=== PATIENT | female | born 1985 | race Caucasian/White ===

== ENCOUNTER 2018-06-06 12:04 | Inpatient (IN) ==
[2018-06-06] MEDS ORDERED: RINGER'S SOLUTION,LACTATED 1,000 ML IV PRN ×2 (12:12→14:27)
[2018-06-06 12:32] LABS: Hematocrit 37.6 % (37.0-47.0); Hemoglobin 12.5 gm/dL (12.5-16.0); Mean Cell Volume 90.4 fl (78-100); Mean Corpuscular Hgb Conc 33.2 g/dl (32-36); Neutrophil # 8.2 K/mm3 (1.3-6.0); Neutrophil % 71.9 % (42-75.0); Platelet Count 229 K/mm3 (150-450); Red Blood Count 4.16 M/mm3 (4.2-5.4); Red Cell Distribution Width 13.5 % (11.5-14.0); White Blood Count 11.4 K/mm3 (4.0-10.5)
[2018-06-06 12:41] LABS: Albumin * 2.9 gm/dl (3.4-5.0); BUN/Creatinine Ratio 10.5 (9.0-21.6); Bilirubin, Total 0.4 mg/dL (0.0-1.1); Ca. Corrected For Albumin 9.2 mg/dL (8.4-10.2); Calcium * 8.6 mg/dL (7.9-10.9); Carbon Dioxide 21.9 mmol/L (24-32.6); Potassium 3.9 mmol/L (3.4-4.6); Total Protein 6.9 gm/dL (6.2-8.2)
[2018-06-06 13:22] LABS: Random Urine Total Protein 7.2 mg/dL (0-12)
[2018-06-06] MEDS ORDERED: ceFAZolin SODIUM/DEXTROSE,ISO 2 GM/50 ML BAG IV ONE (14:27)
[2018-06-06] MEDS ORDERED: OXYTOCIN 20 UNITS in RINGER'S SOLUTION,LACTATED 1,000 ML IV ONE ×2 (14:27→17:00)
--- NOTE | 2018-06-06 14:37 | HP ---
Chief Complaint - Chief Complaint Date of Service: 06/06/18 Time of Service: 14:17 Chief Complaint: elevated blood pressures, contractions History of Present Illness: 32 yo at 37 5/7 wks here for repeat c/s due to preeclampsia and early labor. Patient presented to office for routine OB visit where she was noted to have elevated blood pressures. During evaluation she was noted to also have contractions q 2-3 min of increasing intensity. Blood pressures have been running 130s-150s/80-90s, Prot/Cr ratio was 742. She denies HWANG, visual changes , or epigastric pain. This complicated by hypothyroid, prior c/s, preeclampsia. Rh positve (AB+) Rubella immune GBS negative Medical History (Last Reviewed 06/06/18 @ 14:27 by Simon Alicia DO) Anxiety Onset Date: Unknown Gestational hypertension Onset Date: Unknown Hypothyroid Onset Date: Unknown Migraine Onset Date: Unknown Breech presentation Onset Date: 01/20/13 Sinusitis Onset Date: ~10/06/12 Pelvic pain Onset Date: 09/10/14 Surgical History: Surgical History (Last Reviewed 06/06/18 @ 14:27 by Simon Alicia DO) Previous section complicating Onset Date: ~11/19/17 H/O dilation and curettage Onset Date: ~03/03/12 History of tonsillectomy and adenoidectomy Myringotomy tube status Onset Date: Unknown Previous section Onset Date: ~01/20/13 [place] teeth extracted Onset Date: ~2005 Family History: Family History (Last Reviewed 06/06/18 @ 14:27 by Simon Alicia DO) Father Gout Mother Anxiety Hyperlipemia Hypertension Grandfather CVA (cerebral vascular accident) Grandmother Breast cancer Grandmother Diabetes Social History: Preferred Language Mongolian Do you have any muslim or No cultural preference? Abuse History No History of abuse Psych History No pertinent hx Review Of Systems (GEN) - Review of Systems Generalized/Overall Review: Present: No Symptoms Reported EENTM: Present: No Symptoms Reported Respiratory: Present: No Symptoms Reported Cardiac: Present: No Symptoms Reported Abdominal: Present: Other - contractions Genitourinary: Present: No Symptoms Reported Musculoskeletal: Present: No Symptoms Reported Neurological: Present: No Symptoms Reported Skin: Present: No Symptoms Reported Endocrine: Present: No Symptoms Reported Immunizations: IMMUNIZATION HX Immunizations Up to Date No History of Influenza Vaccine No Hx Pneumococcal Vaccination No Allergies/Adverse Reactions: Allergies Allergy/AdvReac Type Severity Reaction Status Date / Time amoxicillin [Amoxicillin] Allergy Unknown RASH Verified 05/30/18 15:39 Home Medications: HOME MEDICATIONS Prenat Vit Comb.10/Iron/FA/Dha [Vitafol-Ob+Dha Combo Pack] 1 ea PO DAILY [Last Taken 06/05/18] cholecalciferol (vitamin D3) 1,000 unit capsule 1,000 unit PO DAILY 05/04/18 [ Last Taken 06/05/18] vitamin L60-dkmxp acid 2.5 mg-0.8 mg oral sublingual tablet 1 tab PO DAILY 05/04 [Last Taken 06/05/18] thyroid (pork) 30 mg tablet 30 mg PO DAILY #30 tab 05/30/18 [Last Taken 06/06/18 ] Exam - Exam Vital Signs: Vital Signs - Last Taken Temp 36.8 C 06/06/18 13:20 Pulse 75 06/06/18 13:20 Resp 18 06/06/18 13:20 BP 147/82 H 06/06/18 13:20 Pulse Ox 99 06/06/18 13:20 Constitutional: Present: Alert, Oriented x3, Cooperative, Mild distress ENT Exam: Present: hearing grossly normal Breasts: Present: Exam deferred Respiratory: Present: lungs clear, no respiratory distress Cardiovascular/Chest: Present: normal peripheral pulses, regular rate, rhythm, no edema Abdomen: Present: soft, nontender. Absent: rebound tenderness /Rectal: Present: Exam deferred Extremity: Present: non-tender, no pedal edema, no calf tenderness Skin Exam: Present: normal color, warm/dry, no cyanosis Lymphatic: Present: no adenopathy Neurologic: Present: normal mood/affect, oriented x 3 Appearance: Present: appropriate appearance, appropriate insight Eye contact: Present: cooperative, good eye contact, normal speech Thoughts: Present: normal thought pattern Diagnostic Studies: Abnormal Lab Results 06/06/18 06/06/18 06/06/18 Range/Units 12:27 12:27 Unknown WBC 11.4 H (4.0-10.5) K/mm3 RBC 4.16 L (4.2-5.4) M/mm3 Immature Gran % (Auto) 0.70 H (0.001-0.429) % Immature Gran # (Auto) 0.08 H (0.000-0.0310) K/mm3 Lymphocytes % 18.3 L (20-51) % Neutrophils # 8.2 H (1.3-6.0) K/mm3 Carbon Dioxide 21.9 L (24-32.6) mmol/L Anion Gap 17.0 H (6.8-13.8) mmol/L Est GFR (Non-Af Amer) 132 H (60-130) mL/min ALT 17 L (19-67) U/L Albumin 2.9 L (3.4-5.0) gm/dl Ur Random Creatinine 9.7 L (60-200) mg/dL U [place] Prot/Creat Ratio 742 H (0-199) mg/gm Laboratory Results WBC 11.4 K/mm3 (4.0-10.5) H 06/06/18 12:27 RBC 4.16 M/mm3 (4.2-5.4) L 06/06/18 12:27 Hgb 12.5 gm/dL (12.5-16.0) 06/06/18 12:27 Hct 37.6 % (37.0-47.0) 06/06/18 12:27 MCV 90.4 fl (78-100) 06/06/18 12:27 MCH 30.0 pg (27-31) 06/06/18 12:27 MCHC 33.2 g/dl (32-36) 06/06/18 12:27 RDW 13.5 % (11.5-14.0) 06/06/18 12:27 Plt Count 229 K/mm3 (150-450) 06/06/18 12:27 MPV 10.0 fl (8-12.5) 06/06/18 12:27 Immature Gran % (Auto) 0.70 % (0.001-0.429) H 06/06/18 12:27 Immature Gran # (Auto) 0.08 K/mm3 (0.000-0.0310) H 06/06/18 12:27 Neutrophils % 71.9 % (42-75.0) 06/06/18 12:27 Lymphocytes % 18.3 % (20-51) L 06/06/18 12:27 Monocytes % 7.9 % (0.0-9) 06/06/18 12:27 Eosinophils % 0.9 % (0.0-3.0) 06/06/18 12:27 Basophils % 0.3 % (0.0-1.0) 06/06/18 12:27 Nucleated RBC % 0.0 k/mm3 (0-1) 06/06/18 12:27 Neutrophils # 8.2 K/mm3 (1.3-6.0) H 06/06/18 12:27 Lymphocytes # 2.08 k/mm3 (1.5-3.5) 06/06/18 12:27 Monocytes # 0.9 k/mm3 (0.0-1.0) 06/06/18 12:27 Eosinophils # 0.1 k/mm3 (0.0-0.7) 06/06/18 12:27 Absolute Basophils 0.0 k/mm3 (0.0-0.1) 06/06/18 12:27 Sodium 138 mmol/L (132-142) 06/06/18 12:27 Plasma Sodium 138 mmol/L (130-142) 06/06/18 12:27 Potassium 3.9 mmol/L (3.4-4.6) 06/06/18 12:27 Chloride 103 mmol/L (97-106) 06/06/18 12:27 Carbon Dioxide 21.9 mmol/L (24-32.6) L 06/06/18 12:27 Anion Gap 17.0 mmol/L (6.8-13.8) H 06/06/18 12:27 BUN 6 mg/dL (3-23) 06/06/18 12:27 Creatinine 0.57 mg/dL (0.4-1.4) 06/06/18 12:27 Est GFR (Non-Af Amer) 132 mL/min (60-130) H 06/06/18 12:27 BUN/Creatinine Ratio 10.5 (9.0-21.6) 06/06/18 12: Random Glucose 74 mg/dL (70-110) 06/06/18 12:27 Calcium 8.6 mg/dL (7.9-10.9) 06/06/18 12:27 Calcium Adj for Albumin 9.2 mg/dL (8.4-10.2) 06/06/18 12:27 Total Bilirubin 0.4 mg/dL (0.0-1.1) 06/06/18 12:27 AST 16 U/L (0-48) 06/06/18 12:27 ALT 17 U/L (19-67) L 06/06/18 12:27 Alkaline Phosphatase 126 U/L (50-170) 06/06/18 12:27 Total Protein 6.9 gm/dL (6.2-8.2) 06/06/18 12:27 Albumin 2.9 gm/dl (3.4-5.0) L 06/06/18 12:27 Ur Random Creatinine 9.7 mg/dL (60-200) L 06/06/18 Unknown U Random Total Protein 7.2 mg/dL (0-12) 06/06/18 Unknown U [place] Prot/Creat Ratio 742 mg/gm (0-199) H 06/06/18 Unknown Assessment/Plan - Assessment/Plan (1) Preeclampsia Problem: Acute Qualifiers: Trimester: third trimester Qualified Code(s): O14.93 - Unspecified pre- eclampsia, third trimester (2) Previous delivery affecting Assessment: R/b/a to repeat c/s discussed with patient and spouse. All questions answered. Will proceed with repeat c/s due to preeclampsia and labor. Problem: Acute (3) Hypothyroid Problem: Acute Qualifiers: Hypothyroidism type: unspecified Qualified Code(s): E03.9 - Hypothyroidism , unspecified
[2018-06-06] MEDS ORDERED: ONDANSETRON HCL/PF 2 MG/ML VIAL IV PRN (17:00)
[2018-06-06] MEDS ORDERED: SIMETHICONE 80 MG TAB.CHEW PO PRN (17:00)
[2018-06-06] MEDS ORDERED: oxyCODONE HCL/ACETAMINOPHEN 1 TAB TABLET PO PRN ×2 (17:00)
[2018-06-06] MEDS ORDERED: SENNOSIDES 8.6 MG TABLET PO PRN (17:00)
[2018-06-06] MEDS ORDERED: BISACODYL 10 MG SUPP.RECT RC PRN (17:00)
--- NOTE | 2018-06-06 17:05 | OR ---
Operative Report - Dictated Report Narrative: Indication: 32-year-old 3 para 1 at 37-5/7 weeks presents for repeat section due to preeclampsia and early labor. status: Planned Pre Operative Diagnosis: 37-5/7 week intrauterine , prior section, preeclampsia, early labor. Post Operative Diagnosis: Same. Procedure: Repeat low transverse section. Surgeon: Chapito Alicia DO Parts Finisher: OR Staff Anesthesia: Spinal, TAP block Estimated Blood Loss: 400 mL Urine Output: 150 mL clear urine Fluids Replacement: 1200 mL of crystalloid Drains: Gilbert to gravity Surgical Complications: None Specimens: Placenta to freezer Findings: Male born in cephalic presentation at 1605 on 06/06/2016 with Apgars 8 and 9, weighing 2763 g with tight nuchal cord 1 and foot cord 1. Normal uterus, tubes, ovaries Technique: The patient was taken to the operating room and placed in dorsal supine position with a left lateral tilt. After adequate spinal anesthesia, gilbert catheter inserted, SCDs placed, and 2 g of Ancef given preoperatively, the abdominal cavity was entered using sharp and blunt dissection. Two rolled laps were placed in the pericolic gutters on either side of the uterus. A transverse incision was made in the lower uterine segment and extended laterally and upwardly with digital traction. Clear fluid was noted upon amniotomy. The was delivered easily. The cord was clamped and cut and was handed off to awaiting dna analyst. The placenta was allowed to deliver spontaneously. The uterus was cleared of clot and debris. Uterine incision was closed with 0 Vicryl using a running stitch. A second imbricating layer was placed. Excellent hemostasis was noted. The rolled laps were removed from the abdominal cavitiy. The peritoneum was closed with a running 3- 0 Monocryl. The same suture was used to approximate the rectus and pyramidalis muscles. The fascia was closed with a running 0 Vicryl. The subcutaneous layer was closed with a running 3-0 Monocryl. The same suture was used to approximate the subdermal layer. The skin was closed with a running 4-0 Monocryl and Dermabond. Sponge, lap, needle, and instrument count were correct x 2. Disposition: To post anesthesia care unit in good condition History for MU Definition: * The number of deliveries resulting in a live the patient experienced prior to current hospitalization * The previous delivery of live twins or any live multiple gestation is considered one live event. *If primagravida or nulliparous is documented select zero for the number of previous live births. Live Events: 1
--- NOTE | 2018-06-06 17:59 | ANES ---
Anesthesia Pre Procedure Eval Vitals/Labs: Last Vital Signs Temp 36.3 C 06/06/18 17:10 Pulse 115 H 06/06/18 17:26 Resp 18 06/06/18 17:26 BP 137/69 06/06/18 17:26 Pulse Ox 100 06/06/18 17:26 HOME MEDICATIONS Prenat Vit Comb.10/Iron/FA/Dha [Vitafol-Ob+Dha Combo Pack] 1 ea PO DAILY [Last Taken 06/05/18] cholecalciferol (vitamin D3) 1,000 unit capsule 1,000 unit PO DAILY 05/04/18 [ Last Taken 06/05/18] vitamin D04-hofld acid 2.5 mg-0.8 mg oral sublingual tablet 1 tab PO DAILY 05/04 [Last Taken 06/05/18] thyroid (pork) 30 mg tablet 30 mg PO DAILY #30 tab 05/30/18 [Last Taken 06/06/18 ] Allergies/Adverse Reactions: Allergies Allergy/AdvReac Type Severity Reaction Status Date / Time amoxicillin [Amoxicillin] Allergy Unknown RASH Verified 05/30/18 15:39 - Planned Procedure Planned Procedure: CONTRACTIONS ELEV BPS Medication List Reviewed:: Yes Allergies Verified: Yes Medical History (Last Reviewed 06/06/18 @ 17:58 by Liu Conley CRNA) Anxiety Onset Date: Unknown Gestational hypertension Onset Date: Unknown Pre-eclampsia affecting childbirth Onset Date: 06/06/18 Hypothyroid Onset Date: Unknown Migraine Onset Date: Unknown Breech presentation Onset Date: 01/20/13 Sinusitis Onset Date: ~10/06/12 Pelvic pain Onset Date: 09/10/14 Surgical History (Last Reviewed 06/06/18 @ 17:58 by Liu Conley CRNA) Previous section complicating Onset Date: ~11/19/17 H/O dilation and curettage Onset Date: ~03/03/12 History of tonsillectomy and adenoidectomy Myringotomy tube status Onset Date: Unknown Previous section Onset Date: ~01/20/13 [place] teeth extracted Onset Date: ~2005 Family History (Last Reviewed 06/06/18 @ 17:58 by Liu Conley CRNA) Father Gout Mother Anxiety Hyperlipemia Hypertension Grandfather CVA (cerebral vascular accident) Grandmother Breast cancer Grandmother Diabetes - Family Anesthesia History Family History:: no untoward family reactions to anesthesia - Airway/Neck/Teeth Within Normal Limits:: Yes Teeth Condition: Intact Denture Type: None Neck Exam: non-tender, full range of motion, normal alignment, normal inspection Mallampatti Score: 2 Thyromental (T-M) distance: > 6 cm Mandibulo Hyoid distance: > 3 cm - Respiratory Respiratory: lungs clear, normal breath sounds - Cardiovascular Patient History - Cardiac/Respiratory: No pertinent hx Tolerates Activity: Good Heart Sounds: S1 & S2, Regular - Anesthesia Assessment and Plan ASA Class: II, E Anesthesia Type Plan: Epidural - Bilat Tap block for postop analgesia
--- NOTE | 2018-06-06 18:02 | ANES ---
Anesthesia Procedure Note Procedure Note: ANESTHESIA PROCEDURE NOTE Date of procedure: 06/06/2018. Time of procedure:[]. 1710 Performed by: Maik Conley CRNA [place] Manager: [] Yael White RN . Preprocedure diagnosis: []. Previous . Desire for postoperative analgesia. Post procedure diagnosis: Same. Procedure:[] Ultrasound-guided bilateral tap block. Indications: []. Postoperative analgesia. Findings: [] Patient was placed in a supine position in the PACU. Right abdominal wall was prepped with ChloraPrep. Ultrasound was utilized to identify the fascial layer between the internal oblique and trans-abdominus muscles. A 20-gauge 4 inch Stimuplex regional block needle was advanced under ultrasound guidance until tip of needle was positioned just distal to the fascial layer. A total of 20 mL of 0.25% Marcaine with epinephrine 1 200,000 was injected with adequate spread of local anesthetic noted. Regional block needle was removed intact. Procedure was repeated on patient's left side. EBL: Minimal. Fluids: N/A. Specimen: N/A. Post procedure condition: The patient tolerated the procedure well. No complications were noted. Thank you for this consultation Maik Conley CRNA
--- NOTE | 2018-06-06 18:02 | ANES ---
Post Anesthesia Discharge - Transfer of Care Transfer of Care handoff given to nurse: Yes - Discharge from PACU Discharge from PACU when meets criteria: Yes
--- NOTE | 2018-06-06 18:03 | ANES ---
Post Anesthesia Assessment - Vital Signs Vitals: Last Vital Signs Temp 36.3 C 06/06/18 17:10 Pulse 115 H 06/06/18 17:26 Resp 18 06/06/18 17:26 BP 137/69 06/06/18 17:26 Pulse Ox 100 06/06/18 17:26 Airway Patency: Normal - Mental Status Level Of Consciousness: Awake - Pain Level Pain Score: 4 - N/V Assessment Nausea/Vomiting Presence: None Dehydration:: No
[2018-06-06] MEDS: DOCUSATE SODIUM 100 MG CAPSULE PO SCH (22:31)
[2018-06-06] MEDS: IBUPROFEN 800 MG TABLET PO PRN (22:31)
[2018-06-06] MEDS: ENOXAPARIN SODIUM 40 MG/0.4 ML SYRG SC SCH (23:32)
[2018-06-07] MEDS: THYROID,PORK 60 MG TABLET PO SCH (07:42)
[2018-06-07] MEDS: IBUPROFEN 800 MG TABLET PO PRN ×3 (07:58→20:27)
[2018-06-07] MEDS: DOCUSATE SODIUM 100 MG CAPSULE PO SCH ×2 (07:59→20:27)
[2018-06-07] MEDS: PRENATAL VITS96/IRON FUM/FOLIC 1 TAB TABLET PO SCH (08:29)
[2018-06-07] MEDS: CHOLECALCIFEROL 1,000 UNIT CAPSULE PO SCH (08:29)
--- NOTE | 2018-06-07 11:12 | PN ---
Subjective - Date and Time Seen Date: 06/07/18 Time: 11:10 Objective - Vitals Vitals: Last Vital Signs Temp 37.1 C 06/07/18 08:03 Pulse 84 06/07/18 08:03 Resp 18 06/07/18 08:03 BP 135/79 06/07/18 08:03 Pulse Ox 98 06/07/18 08:03 Patient denies complaints. Denies headache, visual changes, epigastric pain, or edema. Tolerating regular diet. Ambulating without difficulty. Pain well controlled. Lochia wnl. Breast-feeding/pumping Abdomen - soft, appropriately tender Incision - clean, dry, intact Uterus - firm, at umbilicus -1 No calf tenderness Impression: Post op day #1 s/p repeat section. Preeclampsia- resolved. Hypothyroidism-stable Plan: Continue routine post-operative/ care. Since patient is recovering very well and baby has been transferred to [facility] for RDS, will plan on discharging patient tomorrow morning if she continues to remain stable. - Abnormal Lab Findings Abnormal Lab Findings: Abnormal Lab Results 06/06/18 06/06/18 06/06/18 Range/Units 12:27 12:27 Unknown WBC 11.4 H (4.0-10.5) K/mm3 RBC 4.16 L (4.2-5.4) M/mm3 Immature Gran % (Auto) 0.70 H (0.001-0.429) % Immature Gran # (Auto) 0.08 H (0.000-0.0310) K/mm3 Lymphocytes % 18.3 L (20-51) % Neutrophils # 8.2 H (1.3-6.0) K/mm3 Carbon Dioxide 21.9 L (24-32.6) mmol/L Anion Gap 17.0 H (6.8-13.8) mmol/L Est GFR (Non-Af Amer) 132 H (60-130) mL/min ALT 17 L (19-67) U/L Albumin 2.9 L (3.4-5.0) gm/dl Ur Random Creatinine 9.7 L (60-200) mg/dL U [place] Prot/Creat Ratio 742 H (0-199) mg/gm Cauti Physician Documentation - Urinary Catheter Management Urethral ([place]) Date of Insertion: 06/06/18 Time of Insertion: 15:45 Assessment/Plan - Problems/Diagnosis (1) Preeclampsia Problem: Acute Qualifiers: Trimester: third trimester Qualified Code(s): O14.93 - Unspecified pre- eclampsia, third trimester (2) Previous delivery affecting Problem: Acute (3) Hypothyroid Problem: Acute Qualifiers: Hypothyroidism type: unspecified Qualified Code(s): E03.9 - Hypothyroidism , unspecified
[2018-06-08] MEDS: ENOXAPARIN SODIUM 40 MG/0.4 ML SYRG SC SCH (02:07)
[2018-06-08 07:38] VITALS: BP 135/86
[2018-06-08] MEDS: THYROID,PORK 60 MG TABLET PO SCH (07:44)
[2018-06-08] MEDS: CHOLECALCIFEROL 1,000 UNIT CAPSULE PO SCH ×2 (07:45→12:38)
[2018-06-08] MEDS: PRENATAL VITS96/IRON FUM/FOLIC 1 TAB TABLET PO SCH ×2 (07:46→12:38)
[2018-06-08] MEDS: DOCUSATE SODIUM 100 MG CAPSULE PO SCH ×2 (07:46→12:38)
--- NOTE | 2018-06-08 09:13 | PN ---
Subjective - Date and Time Seen Date: 06/08/18 Time: 09:12 Objective - Vitals Vitals: Last Vital Signs Temp 37.0 C 06/08/18 07:35 Pulse 92 06/08/18 07:35 Resp 18 06/08/18 07:35 BP 135/86 06/08/18 07:35 Pulse Ox 99 06/08/18 07:35 Patient denies complaints. No signs of preeclampsia. Pumping. Ambulating well. Tolerating regular diet. Pain well controlled. Lochia wnl. Abdomen - soft, appropriately tender Incision - clean, dry, intact Uterus - firm, at umbilicus -2 No calf tenderness Impression: Post op day #2 s/p repeat section. Preeclampsia-resolved. Plan: Continue routine post-operative/ care. Rolled discharge so mother can go to [place] to be with baby. Preeclampsia precautions. Follow- up in 1 week. Cauti Physician Documentation - Urinary Catheter Management Urethral ([place]) Date of Insertion: 06/06/18 Time of Insertion: 15:45 Assessment/Plan - Problems/Diagnosis (1) Preeclampsia Problem: Acute Qualifiers: Trimester: third trimester Qualified Code(s): O14.93 - Unspecified pre- eclampsia, third trimester (2) Previous delivery affecting Problem: Acute (3) Hypothyroid Problem: Acute Qualifiers: Hypothyroidism type: unspecified Qualified Code(s): E03.9 - Hypothyroidism , unspecified
== END 2018-06-08 12:00 | disposition home or self-care (01) | DRG 766 ==
LOC: OBCLINIC 12:04 → OB 13:37 → MS 15:00
PROVIDERS: ADMIT Obstetrics & Gynecology; ATTEND Obstetrics & Gynecology
CPT/HCPCS: 36415; 59025; 80053; 82570; 84155; 84156; 85025